=== PATIENT | female | born 1940 | race Caucasian/White ===

== ENCOUNTER 2017-09-20 12:01 | Emergency (ER) | payer MEDICARE ==
--- NOTE | 2017-09-20 13:18 | EDM.PDOC ---
ED HPI GENERAL MEDICAL PROBLEM - General Chief Complaint: General Stated Complaint: POSS. BLOOD CLOT Time Seen by Provider: 09/20/17 13:03 Source of Information: Reports: Patient History Limitations: Reports: No Limitations - History of Present Illness INITIAL COMMENTS - FREE TEXT/NARRATIVE: 76-year-old female presents for evaluation and treatment of pain to the right posterior thigh. Patient reports that she traveled on an airplane all day . The longest flight was 4 hours. She did walk in between on her layovers. She reports she noticed pain to the right thigh, particularly with pressure and while sitting on the toilet. She has a history of varicose veins but has not had any problems. No history of any blood clots. She reports pain with pressure to the area. She has been up and walking without any problems. No known trauma. She denies any chest pain, shortness of breath, lightheadedness, dizziness or any syncope. Location: Reports: Lower Extremity, Right Right Posterior Leg Pain Score (Numeric/FACES): 5 - Related Data Allergies Allergy/AdvReac Type Severity Reaction Status Date / Time No Known Allergies Allergy Verified 09/20/17 12:26 Home Meds: Home Meds Triamterene/Hydrochlorothiazid [Triamterene-HCTZ 37.5-25 MG] 1 tab PO DAILY [History] Past Medical History Cardiovascular History: Reports: Hypertension - Past Surgical History HEENT Surgical History: Reports: Adenoidectomy, Tonsillectomy GI Surgical History: Reports: Cholecystectomy Social & Family History - Tobacco Use Smoking Status *Q: Former Smoker Used Tobacco, but Quit: Yes Month/Year Tobacco Last Used: 50 - Caffeine Use Caffeine Use: Reports: Coffee - Recreational Drug Use Recreational Drug Use: No ED ROS GENERAL - Review of Systems Review Of Systems: See Below Respiratory: Denies: Shortness of Breath Cardiovascular: Denies: Edema Musculoskeletal: Reports: Leg Pain (right posterior thigh) Skin: Denies: Wound Neurological: Denies: Dizziness, Syncope ED EXAM, GENERAL - Physical Exam Exam: See Below Exam Limited By: No Limitations General Appearance: Alert, WD/WN, No Apparent Distress Respiratory/Chest: No Respiratory Distress, Lungs Clear, Normal Breath Sounds Cardiovascular: Normal Peripheral Pulses, Regular Rate, Rhythm, No Murmur Peripheral Pulses: 2+: Posterior Tibial (L), Posterior Tibial (R), Dorsalis Pedis (L), Dorsalis Pedis (R) Extremities: Normal Inspection, Normal Capillary Refill, Other (tender, cystic feeling mass to the right posterior mid thigh, no erythema). No: Issa's Sign Neurological: Alert, Oriented, Normal Cognition Psychiatric: Normal Affect, Normal Mood Skin Exam: Warm, Dry, Normal Color Course - Vital Signs Last Recorded V/S: Last Vital Signs Temp 36.4 C 09/20/17 12:19 Pulse 61 09/20/17 12:19 Resp 20 09/20/17 12:19 BP 139/72 09/20/17 12:19 Pulse Ox 99 09/20/17 12:19 - Radiology Interpretation Free Text/Narrative:: Right lower extremity deep venous ultrasound: Duplex and color flow imaging was obtained of the right common femoral, proximal greater saphenous, superficial femoral, popliteal, posterior tibial and peroneal veins. Left common femoral vein was also evaluated. Normal phasic flow, augmentation and compression is seen. Impression: 1. No evidence of deep venous thrombosis seen within the right lower extremity or within the left common femoral vein. Right leg ultrasound: Multiple real-time images of the posterior mid thigh were obtained. Varicosities are identified within the superficial soft tissues. These do not appear to be thrombosed. No additional abnormality is seen. Impression: 1. Varicosities within the posterior mid thigh. No findings at this time to indicate superficial thrombophlebitis - Re-Assessments/Exams Free Text/Narrative Re-Assessment/Exam: 09/20/17 15:16 Review the ultrasound report with the patient and her daughter. She has not have a DVT. Daughter is very upset that they did not ultrasound the area that was causing her the most discomfort. I will have them come in specifically ultrasound the area causing her discomfort. 09/20/17 16:30 Reviewed ultrasound results with the patient and her daughter. I do feel is likely a cyst. Encouraged him to keep an eye on it. Tylenol and Motrin as needed for pain. Discharge instruct as documented. Departure - Departure Time of Disposition: 16:30 Disposition: Home, Self-Care 01 Condition: Fair Clinical Impression: Cyst - Discharge Information Referrals: PCP,Not In Area [Primary Care Provider] - Forms: ED Department Discharge Additional Instructions: [id number] Tylenol or Motrin as needed for pain relief. use ice or heat for additional pain relief. Follow-up with family medicine provider if your symptoms persist within 2 weeks. Please return to the ER if your symptoms change or worsen.
--- NOTE | 2017-09-20 14:45 | US ---
Right lower extremity deep venous ultrasound: Duplex and color flow imaging was obtained of the right common femoral, proximal greater saphenous, superficial femoral, popliteal, posterior tibial and peroneal veins. Left common femoral vein was also evaluated. Normal phasic flow, augmentation and compression is seen. Impression: 1. No evidence of deep venous thrombosis seen within the right lower extremity or within the left common femoral vein. Diagnostic code #1
--- NOTE | 2017-09-20 15:59 | US ---
Right leg ultrasound: Multiple real-time images of the posterior mid thigh were obtained. Varicosities are identified within the superficial soft tissues. These do not appear to be thrombosed. No additional abnormality is seen. Impression: 1. Varicosities within the posterior mid thigh. No findings at this time to indicate superficial thrombophlebitis. Diagnostic code #3
== END 2017-09-20 16:38 | disposition home or self-care (01) ==
LOC: JD.ED 12:01
DX: L72.9 Follicular cyst of the skin and subcutaneous tissue, unspecified (principal); I10 Essential (primary) hypertension; Z90.49 Acquired absence of other specified parts of digestive tract; Z87.891 Personal history of nicotine dependence
CPT/HCPCS: 76881-26-RT; 76881-RT; 93971-26-RT; 93971-RT; 99283; 99284-25